=== PATIENT | male | born 1955 | race African-American/Black ===

== ENCOUNTER 2016-12-27 03:28 | Emergency (ER) | payer BC, OTHER ==
[~2016-12-27] VITALS: Ht 188 cm; Wt 108.9 kg
[~2016-12-27 03:28] MED LIST: FAMO40TA4 PO; OMEP40CA5 PO; SUCR1TAB29 PO
[2016-12-27 03:51] VITALS: BP 138/82
--- NOTE | 2016-12-27 04:17 | ED.ADGEN ---
Past Medical History Past Medical History: No Pertinent History Additional Past Medical Histor: ULCER Past Surgical History: No Surgical History Additional Past Surgical Histo: EGD Alcohol Use: None Drug Use: None Adult General Chief Complaint Chief Complaint: EYE PROBLEMS HPI HPI Patient is a 61 year old man, with no significant past medical history, who presents the emergency department with a complaint of swelling of the left upper eyelid. Patient states he began yesterday, states he woke up in the morning and noted there is mild itching of the eyelid, states he was rubbing it when he was at the gym, although he denies any discrete injuries, any initial irritation. He denies any eye pain, any vision changes, any headache, any ear pain, any upper respiratory or lower respiratory complaints, any fevers or chills, any foreign body sensation. He states he's been trying not rub the eye, he did apply a dose of erythromycin ointment that his had at home. He does not have an mri special procedures technologist or any eye issues. Noted to have a small amount of whitish drainage from the outer aspect of the eye lid. Review of Systems Review of Systems Constitutional: Denies fever or chills. [] Eyes: Denies change in visual acuity. Swelling of the left upper eyelid, small amount of white drainage from the lateral aspect. No eye pain. No pain with eye motion. HENT: Denies nasal congestion or sore throat. [] Respiratory: Denies cough or shortness of breath. [] Cardiovascular: Denies chest pain or edema. [] GI: Denies abdominal pain, nausea, vomiting, bloody stools or diarrhea. [] : Denies dysuria. [] Musculoskeletal: Denies back pain or joint pain. [] Integument: Denies rash. [] Neurologic: Denies headache, focal weakness or sensory changes. [] Endocrine: Denies polyuria or polydipsia. [] Lymphatic: Denies swollen glands. [] Psychiatric: Denies depression or anxiety. [] Allergies Allergies Allergies Coded Allergies Type Severity Reaction Last Updated Verified No Known Drug Allergies 04/05/14 No Physical Exam Physical Exam Constitutional: Well developed, well nourished, no acute distress, swelling of the left upper eyelid.. [] HENT: Normocephalic, atraumatic, bilateral external ears normal, oropharynx moist, no oral exudates, nose normal. [] Eyes: PERRLA, EOMI, conjunctiva normal, no discharge. Patient with swelling of the left upper eyelid, normal eye motion, painless, vision is intact, no involvement of the lower eyelid, no lid lag. Neck: Normal range of motion, no tenderness, supple, no stridor. [] Cardiovascular:Heart rate regular rhythm, no murmur, S1, S2, rubs or gallops. [] Lungs & Thorax: Bilateral breath sounds clear to auscultation, no wheezing, rhonchi, rales. [] Abdomen: Bowel sounds normal, soft, no tenderness, no masses, no pulsatile masses. [] Neurologic: Alert and oriented X 3, normal motor function, normal sensory function, no focal deficits noted. [] Psychologic: Affect normal, judgement normal, mood normal. [] Current Patient Data Vital Signs Vital Signs Date Time Temp Pulse Resp B/P (MAP) Pulse Ox O2 Delivery O2 Flow Rate FiO2 12/27/16 03:51 97.6 59 18 96 Room Air 97.6 EKG EKG Not indicated. [] Radiology/Procedures Radiology/Procedures Not indicated. [] Course & Med Decision Making Course & Med Decision Making Pertinent Labs and Imaging studies reviewed. (See chart for details) Patient's examination is consistent with blepharitis, no evidence of septal or preseptal cellulitis or eye involvement. I did discuss use of warm compresses, and keeping the eye clean, avoiding scratching at the eye and rubbing at the eye with patient. He voiced understanding and agreement with instructions. Discussed with the patient that if symptoms persist, or if pain with the eye develops, he should return to the emergency department for follow-up with ophthalmology, he was given contact information for Dr. Martin of ophthalmology. Patient discharged home in stable condition with plan as above. Dragon Disclaimer Dragon Disclaimer This electronic medical record was generated, in whole or in part, using a voice recognition dictation system. Departure Impression: Primary Impression: Blepharitis of eyelid of left eye Disposition: HOME, SELF-CARE Condition: IMPROVED OPAL CASTILLO DO December 27, 2016 04:17
== END 2016-12-27 04:15 | disposition home or self-care (01) ==
LOC: ER 03:28
DX: H01.004 Unspecified blepharitis left upper eyelid (principal)
CPT/HCPCS: 99281

== ENCOUNTER 2017-02-01 13:46 | Emergency (ER) | payer BC ==
[~2017-02-01] VITALS: Ht 188 cm; Wt 108.9 kg
[~2017-02-01 13:46] MED LIST changes: -SUCR1TAB29 PO; +SUCR1TAB35 PO
[2017-02-01 13:56] VITALS: BP 161/93
--- NOTE | 2017-02-01 14:10 | RAD ---
Indication: Mid chest pain. Time of exam 1405 hours. FINDINGS: The heart size is normal. The lungs are clear. No pleural effusion or pneumothorax is identified. The pulmonary vascularity is normal. IMPRESSION: No acute abnormality detected.
[2017-02-01 14:20] LABS: BASO % 1 % (0-3); EOS % 4 % (0-3); HEMATOCRIT 43.6 % (39.0-53.0); LYMPH # 1.9 x10^3/uL (1.0-4.8); LYMPH % 37 % (24-48); MEAN CORPUSCULAR HEMOGLOBIN 33 pg (25-35); MEAN CORPUSCULAR HGB CONC 35 g/dL (31-37); MEAN CORPUSCULAR VOLUME 96 fL (79-100); MONO % 6 % (0-9); NEUT % 52 % (31-73); PLATELET COUNT 256 x10^3/uL (140-400); RED BLOOD COUNT 4.55 x10^6/uL (4.30-5.70); RED CELL DISTRIBUTION WIDTH 12.6 % (11.5-14.5); WHITE BLOOD COUNT 5.2 x10^3/uL (4.0-11.0)
[2017-02-01 14:33] LABS: CALCIUM 9.9 mg/dL (8.5-10.1); CREATININE 1.1 mg/dL (0.7-1.3); GFR 82.6; POTASSIUM 3.6 mmol/L (3.5-5.1)
[2017-02-01 14:39] LABS: ALBUMIN 4.1 g/dL (3.4-5.0); ALBUMIN/GLOBULIN RATIO 1.1 (1.0-1.7); TOTAL BILIRUBIN 0.9 mg/dL (0.2-1.0); TOTAL PROTEIN 7.8 g/dL (6.4-8.2)
--- NOTE | 2017-02-01 15:34 | EKG ---
[facility] [address] [place] [address] Test Date: 2017-02-01 Test Time: 13:51:45 Pat Name: KJ HURD Department: Room: Gender: M Nut Grader: : 1955 Requested By: KAREN MYRICK Order Number: [id number] Reading MD: Sindy Nuñez Measurements Intervals Centuria Rate: 60 P: 52 NE: 194 QRS: 25 QRSD: 76 T: -2 QT: 400 QTc: 404 Interpretive Statements SINUS RHYTHM NON SPECIFIC T ABNORMALITY Electronically Signed On 02-01-2017 21:06:34 CDT by Sindy Nuñez
[2017-02-01] MEDS ORDERED: FAMOTIDINE 20 MG/2 ML VIAL IVP ONE (16:30)
[2017-02-01] MEDS ORDERED: LIDO:MAALOX:DONNATAL 1:1:1 15 ML SINGLE DOSE SWSW ONE (16:30)
--- NOTE | 2017-02-01 17:03 | ED.ADGEN ---
Past Medical History Past Medical History: No Pertinent History Additional Past Medical Histor: ULCER Past Surgical History: No Surgical History Additional Past Surgical Histo: EGD Alcohol Use: None Drug Use: None Adult General Chief Complaint Chief Complaint: CHEST PAIN HPI HPI Patient is a 61 year old -[place] male with history of peptic ulcer disease who presents with intermittent epigastric pain nonradiating pain for the past 3 days. He began after recent trip to [place] after patient ate spicy foods. Denies nausea, hematemesis, black tarry stools or hematochezia. He takes a daily aspirin, but denies alcohol use. Denies fever, back pain chest pain shortness of breath, dizziness or lightheadedness. No other acute symptoms or complaints. Review of Systems Review of Systems Review symptoms as per history of present illness. All other review of symptoms are negative. Current Medications Current Medications Current Medications Medications (Trade) Dose Ordered Sig/Preeti Start Time Stop Time Status Last Admin Dose Admin Famotidine (Pepcid) 20 mg 1X ONCE 02/01/17 16:30 02/01/17 16:32 DC Multi-Ingredient Mouthwash/Gargle (Gi Cocktail Single Dose) 20 ml 1X ONCE 02/01/17 16:30 02/01/17 16:32 DC Allergies Allergies Allergies Coded Allergies Type Severity Reaction Last Updated Verified No Known Drug Allergies 04/05/14 No Physical Exam Physical Exam Constitutional: Well developed, well nourished, no acute distress, non-toxic appearance. HENT: Normocephalic, atraumatic, bilateral external ears normal, oropharynx moist, no oral exudates, nose normal. Eyes: PERRLA, EOMI, conjunctiva normal. Neck: Normal range of motion, no tenderness. Cardiovascular:Heart rate regular rhythm, no murmur. Lungs & Thorax: Bilateral breath sounds clear to auscultation. Abdomen: Bowel sounds normal, soft, nontender. Skin: Warm, dry, no erythema, no rash. Back: No tenderness. Extremities: No tenderness. Neurologic: Alert and oriented X 3, normal motor function, normal sensory function, no focal deficits noted. Psychologic: Affect normal, judgement normal, mood normal. Current Patient Data Vital Signs Vital Signs Date Time Temp Pulse Resp B/P (MAP) Pulse Ox O2 Delivery O2 Flow Rate FiO2 02/01/17 13:56 98.0 59 20 161/93 (115) 96 Room Air 98.0 Lab Values Laboratory Tests Test 02/01/17 14:05 White Blood Count 5.2 x10^3/uL (4.0-11.0) Red Blood Count 4.55 x10^6/uL (4.30-5.70) Hemoglobin 15.0 g/dL (13.0-17.5) Hematocrit 43.6 % (39.0-53.0) Mean Corpuscular Volume 96 fL (79-100) Mean Corpuscular Hemoglobin 33 pg (25-35) Mean Corpuscular Hemoglobin Concent 35 g/dL (31-37) Red Cell Distribution Width 12.6 % (11.5-14.5) Platelet Count 256 x10^3/uL (140-400) Neutrophils (%) (Auto) 52 % (31-73) Lymphocytes (%) (Auto) 37 % (24-48) Monocytes (%) (Auto) 6 % (0-9) Eosinophils (%) (Auto) 4 % (0-3) H Basophils (%) (Auto) 1 % (0-3) Neutrophils # (Auto) 2.7 x10^3uL (1.8-7.7) Lymphocytes # (Auto) 1.9 x10^3/uL (1.0-4.8) Monocytes # (Auto) 0.3 x10^3/uL (0.0-1.1) Eosinophils # (Auto) 0.2 x10^3/uL (0.0-0.7) Basophils # (Auto) 0.0 x10^3/uL (0.0-0.2) Sodium Level 144 mmol/L (136-145) Potassium Level 3.6 mmol/L (3.5-5.1) Chloride Level 105 mmol/L (98-107) Carbon Dioxide Level 33 mmol/L (21-32) H Anion Gap 6 (6-14) Blood Urea Nitrogen 16 mg/dL (8-26) Creatinine 1.1 mg/dL (0.7-1.3) Estimated GFR (Cockcroft-Gault) 82.6 BUN/Creatinine Ratio 15 (6-20) Glucose Level 83 mg/dL (70-99) Calcium Level 9.9 mg/dL (8.5-10.1) Total Bilirubin 0.9 mg/dL (0.2-1.0) Aspartate Amino Transferase (AST) 43 U/L (15-37) H Alanine Aminotransferase (ALT) 51 U/L (16-63) Alkaline Phosphatase 106 U/L (46-116) Troponin I Quantitative < 0.017 ng/mL (0.000-0.055) Total Protein 7.8 g/dL (6.4-8.2) Albumin 4.1 g/dL (3.4-5.0) Albumin/Globulin Ratio 1.1 (1.0-1.7) Lipase 678 U/L (73-393) H Laboratory Tests 02/01/17 14:05 Laboratory Tests 02/01/17 14:05 EKG EKG [EKG: Normal sinus rhythm, rate 60, no acute ST-T wave changes, QTC 404] Radiology/Procedures Radiology/Procedures [] Course & Med Decision Making Course & Med Decision Making Pertinent Labs and Imaging studies reviewed. (See chart for details) [Given patient's history and presentation, his symptoms are likely due to peptic ulcer disease. Abdomen soft, nonsurgical. H&H is stable. Will resume Protonix and Carafate which patient has not been taking and follow up with patient's PCP. Return precautions reviewed.] Dragon Disclaimer Dragon Disclaimer This electronic medical record was generated, in whole or in part, using a voice recognition dictation system. KAREN MYRICK DO Feb 01, 2017 17:03
== END 2017-02-01 17:27 | disposition home or self-care (01) ==
LOC: ER 13:46
DX: R10.13 Epigastric pain (principal); Z87.11 Personal history of peptic ulcer disease; Z79.82 Long term (current) use of aspirin
CPT/HCPCS: 36415; 71010; 80053; 83690; 84484; 85027; 93005; 96374; 99285; S0028

== ENCOUNTER → 2018-11-10 | Outpatient (CLI) | payer OTHER ==
[~2018-11-10] MED LIST changes: +ALLO100T PO; +GADOBUTROL 10 MMOL/10 ML VIAL IV ONE; +OXYC1TAB19 PO
--- NOTE | 2018-11-10 10:24 | RAD ---
NECK ORBIT FACE W/WO CONTRAST History: Right-sided soft tissue mass at base of the skull for one year TECHNIQUE: Multiplanar, multi sequential pre and postcontrast MR imaging was performed of the neck. Comparison: None. Findings: No marker was placed at site of concern. There is an ovoid 2.6 m transverse by 1.9 cm AP by 2.2 cm cc focus of more defined fat in the right suboccipital region. This is not associated with significant enhancement. There is a small adjacent node more inferiorly along the right margin about 0.4 cm short axis dimension, also a couple of tiny nodes superiorly with the largest about 0.2 cm short axis dimension. No other enhancing mass is identified in this region. There is a more defined focus of fatty marrow signal change without bony expansion of the more central and right paracentral occipital calvarium about 1.6 cm AP by 1.3 cm cc by 1.4 cm transverse. Parotid and submandibular glands are symmetric in appearance. There is preservation of the parapharyngeal fat planes. There is patchy moderate to severe ethmoid air cell mucosal thickening, [id number] right greater than left maxillary sinus mucosal thickening. There is degenerative disc disease of the cervical spine greatest C5-6 and C6-7. There is spondylosis greatest C4-5 and C5-6. There is likely central canal stenosis C5-6 about 0.7 to 0.8 cm, to a lesser degree at C4-5. There is nonspecific mild prominence of the adenoids. There is nonspecific heterogeneity of the marrow of the clivus without expansion or enhancement, more likely related to hyperplastic red marrow. Impression: 1. 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 2. There is paranasal sinus mucosal thickening greatest of the ethmoid air cells. 3. There is cervical degenerative disc disease and spondylosis greatest C4-5 and C5-C6, likely spinal stenosis about 0.7 to 0.8 cm C5-6 and to lesser degree C4-5. 4. There is more defined focus of fatty marrow signal change of the central and right paracentral occipital calvarium, signal features also of lipoma. Electronically signed by: Maciej Benavides MD (11/10/2018 10:21 AM) [id number]
--- NOTE | 2018-11-15 17:45 | HP ---
ADMIT DATE: 11/10/2018 HISTORY OF PRESENT ILLNESS: The patient comes in because of an enlarging mass of his right occipital area and neck. He also has about a 2-3 cm mass to the right of the midline, mid right back. They are both enlarging in size. PAST MEDICAL HISTORY: Shows no surgery. He takes no medicine for anything and has no allergies. He had normal childhood diseases, but no other diseases to his knowledge and he takes no medication. FAMILY HISTORY: Noncontributory. REVIEW OF SYSTEMS: Negative except for these enlarging masses of the right occipital area and right back. They are not particularly painful, but are getting larger. It has been there for some years and he wishes to have them removed and find out what they are. SOCIAL HISTORY: Shows he does not use any drugs and does not smoke or drink alcohol. PHYSICAL EXAMINATION: GENERAL: Shows an alert male in no acute distress. HEAD, EARS, EYES, NOSE AND THROAT: Grossly normal. NECK: Supple. Trachea was in midline and he did have a mass at the occipital area right proximal neck. It appears to be 4-5 cm in diameter and is not particularly movable. The neck was otherwise supple. There was no evidence of inflammation. It appears to be at and above the hairline on the right. CHEST: Clear bilaterally to auscultation. HEART: Had no murmurs, heaves, friction rubs or thrills and the rate was estimated to be 72 beats per minute and it was regular. BACK: There is a mass of about 2 cm to the right of the midline by about 4-5 cm. It did not appear to be movable but does not appear to be deep. EXTREMITIES: The patient also has a mass of the left elbow lateral aspect and appears to be movable. The extremities were otherwise grossly normal. ABDOMEN: Not examined. GENITALIA: Not examined. IMPRESSION: 1. Mass of the right occipital neck area. 2. Mass of the right back. 3. Mass of the left elbow. EDILIA ESPINOSA MD DR: AVELINO/reina JOB#: [id number] / [id number]
--- NOTE | 2018-11-29 08:58 | PDOC4 ---
Operative Note Operative Note Surgeon.........................Warren Preop diagnosis..............Mass of the right posterior neck and mass of the back Postop diagnosis............same Anesthesia.....................general Procedure.......................Excision mass of the neck and mass of the back Blood loss.......................5 cc Drains.............................none Fluids.............................see anesthesia sheet Condition........................satisfactory EDILIA ESPINOSA MD Nov 29, 2018 08:58
--- NOTE | 2018-11-29 09:02 | PDOC ---
SURGICAL PROGRESS NOTE Subjective No change in dictated H&P EDILIA ESPINOSA MD Nov 29, 2018 09:01
== END | disposition home or self-care (01) ==
LOC: MRI 08:24
PROVIDERS: ATTEND Specialist
DX: D17.0 Benign lipomatous neoplasm of skin and subcutaneous tissue of head, face and neck (principal); M50.322 Other cervical disc degeneration at C5-C6 level; M47.812 Spondylosis without myelopathy or radiculopathy, cervical region
CPT/HCPCS: 70543; A9585

== ENCOUNTER 2018-11-29 07:14 | Day surgery (SDC) | payer OTHER ==
[~2018-11-29] VITALS: Ht 185.4 cm; Wt 108.9 kg
[~2018-11-29 07:14] MED LIST changes: -GADOBUTROL 10 MMOL/10 ML VIAL IV ONE; +HYDROmorphone 2 MG/ML VIAL IV PRN; +IV RINGERS,LACTATED 1000ML 1,000 ML IV SCH; +LIDOCAINE 1% PF 2 ML VIAL. ID PRN; +LIDOCAINE 1%/EPI 1:100,000 20 ML VIAL. ONE; +MORPHINE SULFATE 2 MG/ML VIAL. IV PRN; +ONDANSETRON PF 4 MG/2 ML VIAL. IV PRN; -OXYC1TAB19 PO; +PROCHLORPERAZINE 10 MG/2 ML VIAL. IV PRN; +fentaNYL PF VIAL 100 MCG/2 ML VIAL IV PRN
[2018-11-29] MEDS ORDERED: DEXAMETHASONE SOD PHOS 20 MG/5 ML VIAL. ONE (08:34)
[2018-11-29] MEDS ORDERED: ONDANSETRON PF 4 MG/2 ML VIAL. ONE (08:34)
[2018-11-29] MEDS ORDERED: ROCURONIUM 50 MG/5 ML VIAL. ONE (08:34)
[2018-11-29] MEDS ORDERED: LIDOCAINE 2% PF 5 ML VIAL. ONE (08:34)
[2018-11-29] MEDS ORDERED: PROPOFOL 20 ML IV ONE (08:34)
[2018-11-29 09:18] LABS: BASO % 1 % (0-3); EOS # 0.2 x10^3/uL (0.0-0.7); EOS % 6 % (0-3); HEMATOCRIT 44.9 % (39.0-53.0); HEMOGLOBIN 15.1 g/dL (13.0-17.5); LYMPH # 1.5 x10^3/uL (1.0-4.8); LYMPH % 44 % (24-48); MEAN CORPUSCULAR HEMOGLOBIN 33 pg (25-35); MEAN CORPUSCULAR HGB CONC 34 g/dL (31-37); MEAN CORPUSCULAR VOLUME 96 fL (79-100); MONO # 0.3 x10^3/uL (0.0-1.1); MONO % 8 % (0-9); NEUT # 1.4 x10^3uL (1.8-7.7); NEUT % 41 % (31-73); PLATELET COUNT 269 x10^3/uL (140-400); RED BLOOD COUNT 4.66 x10^6/uL (4.30-5.70); RED CELL DISTRIBUTION WIDTH 12.4 % (11.5-14.5); WHITE BLOOD COUNT 3.4 x10^3/uL (4.0-11.0)
[2018-11-29 09:26] LABS: CALCIUM 9.4 mg/dL (8.5-10.1); GFR 91.6; POTASSIUM 3.9 mmol/L (3.5-5.1)
[2018-11-29 09:32] LABS: ALBUMIN/GLOBULIN RATIO 1.1 (1.0-1.7); TOTAL BILIRUBIN 0.8 mg/dL (0.2-1.0); TOTAL PROTEIN 7.8 g/dL (6.4-8.2)
[2018-11-29] MEDS ORDERED: fentaNYL PF VIAL 100 MCG/2 ML VIAL ONE (09:40)
[2018-11-29] MEDS ORDERED: PHENYLEPHRINE 10 MG/ML VIAL. ONE (09:54)
[2018-11-29] MEDS ORDERED: NEOSTIGMINE METHYLSULFATE 5 MG/5 ML SYRINGE. ONE (10:31)
[2018-11-29] MEDS ORDERED: GLYCOPYRROLATE 1 MG/5 ML VIAL. ONE (10:31)
[2018-11-29] MEDS ORDERED: SEVOFLURANE 61 TO 120 MINUTES. IH ONE (10:35)
[2018-11-29] MEDS ORDERED: SEVOFLURANE > 120 MINUTES. IH ONE (11:18)
[2018-11-29] MEDS ORDERED: KETOROLAC 30 MG/ML INJ FOR OR. INJ ONE (11:40)
--- NOTE | 2018-11-29 11:54 | PDOC ---
SURGICAL PROGRESS NOTE Subjective No change in dictated H&P Vital Signs Vital Signs Date Time Temp Pulse Resp B/P (MAP) Pulse Ox O2 Delivery O2 Flow Rate FiO2 11/29/18 07:47 97.5 54 16 135/85 97 Room Air 97.5 Labs Laboratory Tests Test 11/29/18 08:00 White Blood Count 3.4 x10^3/uL (4.0-11.0) Red Blood Count 4.66 x10^6/uL (4.30-5.70) Hemoglobin 15.1 g/dL (13.0-17.5) Hematocrit 44.9 % (39.0-53.0) Mean Corpuscular Volume 96 fL (79-100) Mean Corpuscular Hemoglobin 33 pg (25-35) Mean Corpuscular Hemoglobin Concent 34 g/dL (31-37) Red Cell Distribution Width 12.4 % (11.5-14.5) Platelet Count 269 x10^3/uL (140-400) Neutrophils (%) (Auto) 41 % (31-73) Lymphocytes (%) (Auto) 44 % (24-48) Monocytes (%) (Auto) 8 % (0-9) Eosinophils (%) (Auto) 6 % (0-3) Basophils (%) (Auto) 1 % (0-3) Neutrophils # (Auto) 1.4 x10^3uL (1.8-7.7) Lymphocytes # (Auto) 1.5 x10^3/uL (1.0-4.8) Monocytes # (Auto) 0.3 x10^3/uL (0.0-1.1) Eosinophils # (Auto) 0.2 x10^3/uL (0.0-0.7) Basophils # (Auto) 0.0 x10^3/uL (0.0-0.2) Prothrombin Time 14.0 SEC (11.7-14.0) Prothromb Time International Ratio 1.1 (0.8-1.1) Sodium Level 142 mmol/L (136-145) Potassium Level 3.9 mmol/L (3.5-5.1) Chloride Level 105 mmol/L (98-107) Carbon Dioxide Level 31 mmol/L (21-32) Anion Gap 6 (6-14) Blood Urea Nitrogen 17 mg/dL (8-26) Creatinine 1.0 mg/dL (0.7-1.3) Estimated GFR (Cockcroft-Gault) 91.6 BUN/Creatinine Ratio 17 (6-20) Glucose Level 83 mg/dL (70-99) Calcium Level 9.4 mg/dL (8.5-10.1) Total Bilirubin 0.8 mg/dL (0.2-1.0) Aspartate Amino Transf (AST/SGOT) 28 U/L (15-37) Alanine Aminotransferase (ALT/SGPT) 40 U/L (16-63) Alkaline Phosphatase 109 U/L (46-116) Total Protein 7.8 g/dL (6.4-8.2) Albumin 4.0 g/dL (3.4-5.0) Albumin/Globulin Ratio 1.1 (1.0-1.7) Laboratory Tests Test 11/29/18 08:00 White Blood Count 3.4 x10^3/uL (4.0-11.0) Red Blood Count 4.66 x10^6/uL (4.30-5.70) Hemoglobin 15.1 g/dL (13.0-17.5) Hematocrit 44.9 % (39.0-53.0) Mean Corpuscular Volume 96 fL (79-100) Mean Corpuscular Hemoglobin 33 pg (25-35) Mean Corpuscular Hemoglobin Concent 34 g/dL (31-37) Red Cell Distribution Width 12.4 % (11.5-14.5) Platelet Count 269 x10^3/uL (140-400) Neutrophils (%) (Auto) 41 % (31-73) Lymphocytes (%) (Auto) 44 % (24-48) Monocytes (%) (Auto) 8 % (0-9) Eosinophils (%) (Auto) 6 % (0-3) Basophils (%) (Auto) 1 % (0-3) Neutrophils # (Auto) 1.4 x10^3uL (1.8-7.7) Lymphocytes # (Auto) 1.5 x10^3/uL (1.0-4.8) Monocytes # (Auto) 0.3 x10^3/uL (0.0-1.1) Eosinophils # (Auto) 0.2 x10^3/uL (0.0-0.7) Basophils # (Auto) 0.0 x10^3/uL (0.0-0.2) Prothrombin Time 14.0 SEC (11.7-14.0) Prothromb Time International Ratio 1.1 (0.8-1.1) Sodium Level 142 mmol/L (136-145) Potassium Level 3.9 mmol/L (3.5-5.1) Chloride Level 105 mmol/L (98-107) Carbon Dioxide Level 31 mmol/L (21-32) Anion Gap 6 (6-14) Blood Urea Nitrogen 17 mg/dL (8-26) Creatinine 1.0 mg/dL (0.7-1.3) Estimated GFR (Cockcroft-Gault) 91.6 BUN/Creatinine Ratio 17 (6-20) Glucose Level 83 mg/dL (70-99) Calcium Level 9.4 mg/dL (8.5-10.1) Total Bilirubin 0.8 mg/dL (0.2-1.0) Aspartate Amino Transf (AST/SGOT) 28 U/L (15-37) Alanine Aminotransferase (ALT/SGPT) 40 U/L (16-63) Alkaline Phosphatase 109 U/L (46-116) Total Protein 7.8 g/dL (6.4-8.2) Albumin 4.0 g/dL (3.4-5.0) Albumin/Globulin Ratio 1.1 (1.0-1.7) EDILIA ESPINOSA MD Nov 29, 2018 11:54
--- NOTE | 2018-11-29 11:57 | PDOC ---
SURGICAL PROGRESS NOTE Subjective OP NOte: surgeon...................................Espinosa Pe op diag...............................tumor right neck and right upper back Post op diag............................same Anesthesia..............................general Procedure...............................excision mass deep of right upper neck Excisio mckay of right upper back Bloo0d loss.............................60cc Fluids.....................................see anesthesia sheet Drains....................................none Condition................................satisfactory Vital Signs Vital Signs Date Time Temp Pulse Resp B/P (MAP) Pulse Ox O2 Delivery O2 Flow Rate FiO2 11/29/18 07:47 97.5 54 16 135/85 97 Room Air 97.5 Labs Laboratory Tests Test 11/29/18 08:00 White Blood Count 3.4 x10^3/uL (4.0-11.0) Red Blood Count 4.66 x10^6/uL (4.30-5.70) Hemoglobin 15.1 g/dL (13.0-17.5) Hematocrit 44.9 % (39.0-53.0) Mean Corpuscular Volume 96 fL (79-100) Mean Corpuscular Hemoglobin 33 pg (25-35) Mean Corpuscular Hemoglobin Concent 34 g/dL (31-37) Red Cell Distribution Width 12.4 % (11.5-14.5) Platelet Count 269 x10^3/uL (140-400) Neutrophils (%) (Auto) 41 % (31-73) Lymphocytes (%) (Auto) 44 % (24-48) Monocytes (%) (Auto) 8 % (0-9) Eosinophils (%) (Auto) 6 % (0-3) Basophils (%) (Auto) 1 % (0-3) Neutrophils # (Auto) 1.4 x10^3uL (1.8-7.7) Lymphocytes # (Auto) 1.5 x10^3/uL (1.0-4.8) Monocytes # (Auto) 0.3 x10^3/uL (0.0-1.1) Eosinophils # (Auto) 0.2 x10^3/uL (0.0-0.7) Basophils # (Auto) 0.0 x10^3/uL (0.0-0.2) Prothrombin Time 14.0 SEC (11.7-14.0) Prothromb Time International Ratio 1.1 (0.8-1.1) Sodium Level 142 mmol/L (136-145) Potassium Level 3.9 mmol/L (3.5-5.1) Chloride Level 105 mmol/L (98-107) Carbon Dioxide Level 31 mmol/L (21-32) Anion Gap 6 (6-14) Blood Urea Nitrogen 17 mg/dL (8-26) Creatinine 1.0 mg/dL (0.7-1.3) Estimated GFR (Cockcroft-Gault) 91.6 BUN/Creatinine Ratio 17 (6-20) Glucose Level 83 mg/dL (70-99) Calcium Level 9.4 mg/dL (8.5-10.1) Total Bilirubin 0.8 mg/dL (0.2-1.0) Aspartate Amino Transf (AST/SGOT) 28 U/L (15-37) Alanine Aminotransferase (ALT/SGPT) 40 U/L (16-63) Alkaline Phosphatase 109 U/L (46-116) Total Protein 7.8 g/dL (6.4-8.2) Albumin 4.0 g/dL (3.4-5.0) Albumin/Globulin Ratio 1.1 (1.0-1.7) Laboratory Tests Test 11/29/18 08:00 White Blood Count 3.4 x10^3/uL (4.0-11.0) Red Blood Count 4.66 x10^6/uL (4.30-5.70) Hemoglobin 15.1 g/dL (13.0-17.5) Hematocrit 44.9 % (39.0-53.0) Mean Corpuscular Volume 96 fL (79-100) Mean Corpuscular Hemoglobin 33 pg (25-35) Mean Corpuscular Hemoglobin Concent 34 g/dL (31-37) Red Cell Distribution Width 12.4 % (11.5-14.5) Platelet Count 269 x10^3/uL (140-400) Neutrophils (%) (Auto) 41 % (31-73) Lymphocytes (%) (Auto) 44 % (24-48) Monocytes (%) (Auto) 8 % (0-9) Eosinophils (%) (Auto) 6 % (0-3) Basophils (%) (Auto) 1 % (0-3) Neutrophils # (Auto) 1.4 x10^3uL (1.8-7.7) Lymphocytes # (Auto) 1.5 x10^3/uL (1.0-4.8) Monocytes # (Auto) 0.3 x10^3/uL (0.0-1.1) Eosinophils # (Auto) 0.2 x10^3/uL (0.0-0.7) Basophils # (Auto) 0.0 x10^3/uL (0.0-0.2) Prothrombin Time 14.0 SEC (11.7-14.0) Prothromb Time International Ratio 1.1 (0.8-1.1) Sodium Level 142 mmol/L (136-145) Potassium Level 3.9 mmol/L (3.5-5.1) Chloride Level 105 mmol/L (98-107) Carbon Dioxide Level 31 mmol/L (21-32) Anion Gap 6 (6-14) Blood Urea Nitrogen 17 mg/dL (8-26) Creatinine 1.0 mg/dL (0.7-1.3) Estimated GFR (Cockcroft-Gault) 91.6 BUN/Creatinine Ratio 17 (6-20) Glucose Level 83 mg/dL (70-99) Calcium Level 9.4 mg/dL (8.5-10.1) Total Bilirubin 0.8 mg/dL (0.2-1.0) Aspartate Amino Transf (AST/SGOT) 28 U/L (15-37) Alanine Aminotransferase (ALT/SGPT) 40 U/L (16-63) Alkaline Phosphatase 109 U/L (46-116) Total Protein 7.8 g/dL (6.4-8.2) Albumin 4.0 g/dL (3.4-5.0) Albumin/Globulin Ratio 1.1 (1.0-1.7) EDILIA ESPINOSA MD Nov 29, 2018 11:57
[2018-11-29] MEDS ORDERED: OXYC1TAB19 PO (12:35)
[2018-11-29] MEDS ORDERED: oxyCODONE/APAP 7.5/325 1 TAB TABLET PO ONE (12:45)
[2018-11-29 13:10] VITALS: BP 130/68
--- NOTE | 2018-11-30 02:05 | OP ---
DATE OF SURGERY: SURGEON: Jake Espinosa M.D. PREOPERATIVE DIAGNOSIS: Tumor of right upper posterior neck and tumor of back. POSTOPERATIVE DIAGNOSIS: Tumor of right upper posterior neck and tumor of back. The tumor of the neck was deep to the fascia. ANESTHESIA: General. PROCEDURE: Excision of deep tumor proximal posterior right neck and excision of large tumor, right upper back. TECHNIQUE: They were done separately and the neck was done first. It was properly prepped and draped in routine fashion. The lesion being the highest portion of the neck just to the right of the midline. We made a transverse incision to make certain that it was be cosmetically acceptable and it also had to be enlarged as we got deeper into the tumor. We used a 15-blade to make an incision over the mass and carried this down to the subcutaneous. We went into the subcutaneous and then deep to the fascia covering the muscle, we made an incision in the fascia and we saw the mass. It was really fairly firm about 3-4 cm in size and was seemed to be well circumscribed. It did not have finger-like projections that she would see from typical lipoma and therefore, I do not know what this was. Grossly, we excised it totally. There was a difficult dissection as we slowly went around the mass, getting up under the mass was hard and the mass was hard.. Small brisk bleeders were cauterized. This was done, we used Metzenbaum scissors and it and cut and slowly excised the mass grossly totally from the surrounding tissues. It appeared to be pretty well encapsulated and was removed totally with difficulty as it was deep. The resultant defect was inspected. Cautery was used to control all the bleeders and we used a 3-0 Vicryl to approximate the fascia and then 4-0 Vicryl to approximate the subcutaneous in interrupted fashion. We then used 4-0 nylon to close the skin in interrupted fashion. A sterile dressing was applied and the procedure was terminated. The blood loss during this procedure was probably 35-40 mL. The fluids given can be obtained from the anesthesia sheet and no drains were used and the condition of the patient was satisfactory as we proceeded to go on to remove the next mass. Next, the area of the back was properly prepped and draped in a routine fashion and a longitudinal incision was made over this very large mass in a fusiform fashion. We did this with a 15 blade and carried it down through the skin. The skin was picked on the back, we went through this. Superiorly, we developed a plane into the subcutaneous and then I encountered the mass and I used Metzenbaum scissors to go down to the mass. We did not enter the mass but excised it from the surrounding structures. The mass was about 4-5 cm grossly seen in the back and this was totally excised from the surrounding tissues. The resultant defect was inspected and 3-0 Vicryl was used to approximate the deeper structures and then 4-0 Vicryl interrupted sutures was used to close the skin. The procedure was now terminated as sterile dressing was applied. Blood loss was about 10-15 mL. Fluids given can be obtained from the anesthesia sheet. No drains were used and the condition of the patient was satisfactory as he has returned to the Recovery Room. Sterile Tegaderm dressings were used for the back mass incision. JAKE ESPINOSA MD DR: AVELINO/reina JOB#: [id number] / [id number] CARI
--- NOTE | 2018-11-30 09:19 | HP ---
ADMIT DATE: 11/10/2018 HISTORY OF PRESENT ILLNESS: The patient comes in because of an enlarging mass of his right occipital area and neck. He also has about a 2-3 cm mass to the right of the midline, mid right back. They are both enlarging in size. PAST MEDICAL HISTORY: Shows no surgery. He takes no medicine for anything and has no allergies. He had normal childhood diseases, but no other diseases to his knowledge and he takes no medication. FAMILY HISTORY: Noncontributory. REVIEW OF SYSTEMS: Negative except for these enlarging masses of the right occipital area and right back. They are not particularly painful, but are getting larger. It has been there for some years and he wishes to have them removed and find out what they are. SOCIAL HISTORY: Shows he does not use any drugs and does not smoke or drink alcohol. PHYSICAL EXAMINATION: GENERAL: Shows an alert male in no acute distress. HEAD, EARS, EYES, NOSE AND THROAT: Grossly normal. NECK: Supple. Trachea was in midline and he did have a mass at the occipital area right proximal neck. It appears to be 4-5 cm in diameter and is not particularly movable. The neck was otherwise supple. There was no evidence of inflammation. It appears to be at and above the hairline on the right. CHEST: Clear bilaterally to auscultation. HEART: Had no murmurs, heaves, friction rubs or thrills and the rate was estimated to be 72 beats per minute and it was regular. BACK: There is a mass of about 2 cm to the right of the midline by about 4-5 cm. It did not appear to be movable but does not appear to be deep. EXTREMITIES: The patient also has a mass of the left elbow lateral aspect and appears to be movable. The extremities were otherwise grossly normal. ABDOMEN: Not examined. GENITALIA: Not examined. IMPRESSION: 1. Mass of the right occipital/neck area. 2. Mass of the right back. 3. Mass of the left elbow. EDILIA ESPINOSA MD DR: AVELINO/reina JOB#: [id number] / [id number] CARI
--- NOTE | 2018-12-01 14:06 | PATHOLOGY ---
[facility] Accession Number: [id number] . 01 Material submitted: . PART A: scalp - POSTERIOR SCALP TUMOR. Modifiers: posterior PART B: back - BACK MASS . 01 Clinical history: . Scalp/back mass . 02 Diagnosis: A. Fibroadipose tissue, posterior scalp tumor excision: - Fibrolipoma. . B. Skin and subcutaneous tissue, back mass excision: - Follicular cyst, infundibular type. (JPM:chao; 12/01/2018) QMS/12/01/2018 . 02 Comment: There is no evidence of malignancy. . 02 Electronically signed: . Osvaldo Gurrola MD, Pathologist NPI- [id number] . 01 Gross description: . A. The specimen is received in formalin, labeled "Houstonia Eatman, posterior scalp tumor". Received is a segment of encapsulated pink-banerjee, moderately firm tissue measuring 2.9 x 2.6 x 2.0 cm in greatest dimensions. The surgical margin is inked. Sectioning reveals yellow-banerjee, glistening cut surfaces throughout. The specimen is submitted representatively in cassettes A1 through A3. . B. The specimen is received in formalin, labeled "Kvng Eatman, back mass". Received is an ellipse of light banerjee, grossly unremarkable skin with attached underlying soft tissue measuring 7.1 x 3.0 x 2.8 cm in greatest dimensions with a suture placed at one tip, which will arbitrarily be designated as the 12:00 margin. The surgical margins are inked as follows: 12 to 3:00-yellow, 3 to 6:00-blue, and 6 to 12:00-black. Sectioning reveals a unilocular cystic structure measuring 2.7 cm filled with pale banerjee to wheat-banerjee amorphous material. The specimen is submitted representatively in cassette B1. (CAA; 11/30/2018) QAC/QAC . 02 Pathologist provided ICD-10: D17.79, L72.9 . 02 CPT . 949345, 590469 Specimen Comment: A courtesy copy of this report has been sent to Specimen Comment: [phone], . Specimen Comment: Report sent to / DR PERRY Performed at: 01 [facility] [address] [facility] [address], [place] [id number] MD Demarcus Mchugh MD Phone: [phone] Performed at: 02 [facility] [address] [place], [place] [id number] MD Osvaldo Gurrola MD Phone: [phone]
== END 2018-11-29 13:18 | disposition home or self-care (01) ==
LOC: SURG 07:14
PROVIDERS: ATTEND Specialist
DX: D17.0 Benign lipomatous neoplasm of skin and subcutaneous tissue of head, face and neck (principal); L72.8 Other follicular cysts of the skin and subcutaneous tissue; Z79.01 Long term (current) use of anticoagulants; Z79.899 Other long term (current) drug therapy; M10.9 Gout, unspecified; Z98.890 Other specified postprocedural states; Z87.442 Personal history of urinary calculi; F14.90 Cocaine use, unspecified, uncomplicated; Z87.891 Personal history of nicotine dependence
CPT/HCPCS: 11406; 12032; 21014; 36415; 80053; 85025; 85610; 88304; J0690; J1100; J1885; J2001; J2405; J2704; J2710; J3010; J3490

== ENCOUNTER 2021-01-05 10:03 | Emergency (ER) | payer OTHER ==
[~2021-01-05] VITALS: Ht 185.4 cm; Wt 115.9 kg
[~2021-01-05 10:03] MED LIST changes: -HYDROmorphone 2 MG/ML VIAL IV PRN; -IV RINGERS,LACTATED 1000ML 1,000 ML IV SCH; -LIDOCAINE 1% PF 2 ML VIAL. ID PRN; -LIDOCAINE 1%/EPI 1:100,000 20 ML VIAL. ONE; -MORPHINE SULFATE 2 MG/ML VIAL. IV PRN; +OMEP40CA45 PO; -OMEP40CA5 PO; -ONDANSETRON PF 4 MG/2 ML VIAL. IV PRN; +OXYC1TAB19 PO; -PROCHLORPERAZINE 10 MG/2 ML VIAL. IV PRN; -fentaNYL PF VIAL 100 MCG/2 ML VIAL IV PRN
--- NOTE | 2021-01-05 10:52 | PHYS DOC ---
Past Medical History Past Medical History: No Pertinent History Additional Past Medical Histor: ULCER Past Surgical History: No Surgical History Additional Past Surgical Histo: EGD Smoking Status: Never Smoker Alcohol Use: None Drug Use: None General Adult EDM: Chief Complaint: ABDOMINAL PAIN HPI: HPI: 65-year-old male past medical history of gout presents the ED with complaints of left lower quadrant and left low back pain, nonradiating described as sharp for the past 3 days with associated black stools, reports he noticed dark stools while he was at the gym. History of abdominal ulcers 10 years ago, was admitted to the hospital analysis last encounter being seen by a GI physician. Is not on any anticoagulants. Only takes allopurinol for gout. Denies any alcohol use or binge drinking states, "I don't do that, I go to [facility]." No PSH. Has not eaten anything today due to the pain but reports no nausea or vomiting, is tolerating food and drink. Review of Systems: Review of Systems: Constitutional: Denies fever or chills. [] Eyes: Denies change in visual acuity. [] HENT: Denies nasal congestion or sore throat. [] Respiratory: Denies cough or shortness of breath. [] Cardiovascular: Denies chest pain or edema. [] GI: Denies nausea or vomiting or hematochezia : Denies dysuria or hematuria Musculoskeletal: Denies joint pain or deformity Integument: Denies rash or diaphoresis Neurologic: Denies headache, focal weakness or sensory changes. [] Endocrine: Denies polyuria or polydipsia. [] Lymphatic: Denies swollen glands. [] Psychiatric: Denies depression or anxiety. [] Heart Score: C/O Chest Pain: No Risk Factors: Risk Factors: DM, Current or recent (<one month) smoker, HTN, HLP, family history of CAD, obesity. Risk Scores: Score 0 - 3: 2.5% MACE over next 6 weeks - Discharge Home Score 4 - 6: 20.3% MACE over next 6 weeks - Admit for Clinical Observation Score 7 - 10: 72.7% MACE over next 6 weeks - Early Invasive Strategies Allergies: Allergies: Allergies Coded Allergies Type Severity Reaction Last Updated Verified No Known Drug Allergies 11/29/18 No Physical Exam: PE: Constitutional: Well developed, well nourished, no acute distress, non-toxic appearance. HENT: Normocephalic, atraumatic, Eyes: EOMI, conjunctiva normal, no discharge. Neck: Normal range of motion, supple, Cardiovascular: S1/2 present, regular rhythm Lungs & Thorax: Speaking in full sentences, bilateral equal chest rise, no tachypnea or increased work of breathing Abdomen: soft, mild left lower quadrant tenderness with no Rovsing sign, no McBurney's point tenderness, no Taveras sign, no rigidity or guarding Skin: Warm, dry, no erythema, no rash. [] Back: Reports nonreproducible left lumbar back pain, no midline tenderness, no CVA tenderness. [] Extremities: No tenderness, no cyanosis, no lower extremity edema Neurologic: Alert and oriented X 3, normal motor function, normal sensory function, no focal deficits noted. [] Psychologic: Affect normal, judgement normal, mood normal. [] : Small nonthrombosed external hemorrhoids at 6/7 o'clock position with no fissure, no peripheral blood, scant stool in rectal vault with no melena EKG: EKG: [] Radiology/Procedures: Radiology/Procedures: [facility] [address] [place] [address] IMAGING REPORT Signed PATIENT: KJ HURD ACCOUNT: [id number] : 1955 LOCATION: ER AGE: 65 SEX: M EXAM STATUS: REG ER ORD. PHYSICIAN: IGSELLE HOOD DO REASON: Lower abdomen pain, blood in stool x 3 days PROCEDURE: CT ABD PELV W/ IV CONTRST ONLY Study: CT abdomen/pelvis with intravenous contrast Indication: Lower abdominal pain. Bloody stools. Comparison: 03/22/2015 Technique: Helical CT imaging performed of the abdomen and pelvis after the intravenous administration of 75 cc Omnipaque 300 contrast. Sagittal and coronal reformats were obtained. One or more of the following individualized dose reduction techniques were utilized for this examination: 1. Automated exposure control 2. Adjustment of the mA and/or kV according to patient size 3. Use of iterative reconstruction technique. Findings: Chest: Mild bibasilar volume loss. Liver: Hepatic steatosis. Gallbladder/Biliary Tree: No CT manifestations of acute cholecystitis. Nondilated biliary tree. Pancreas: Unremarkable. Spleen: Mildly enlarged at 14 cm transverse. Adrenal Glands: No adrenal gland mass. Kidneys/Ureters/Bladder: Small renal cystic foci on the right not fully characterized. Tiny focus of low attenuation at the lower pole of the left kidney. No nephrolithiasis or hydronephrosis. Within normal limits urinary bladder. Reproductive Organs: Enlarged prostate with median lobe hypertrophy. The prostate measures 5.5 cm transverse. Colon: Active diverticulitis at the distal aspect of the descending segment with surrounding inflammation and trace free fluid. No evidence for an uncontained perforation. No abscess. Appendix: Normal. Small Bowel: Nonobstructed. Stomach: Unremarkable. Vasculature: Scattered calcific atherosclerosis. Nonaneurysmal aorta. Lymph Nodes: Within normal limits. Peritoneum and Body Wall: Trace free pelvic fluid. Inflammatory changes associated with diverticulitis as described. No pneumoperitoneum. Small fat- containing umbilical hernia. Scattered metallic densities within the soft tissues around the right more so than left hips. Bones: Multifocal degenerative changes. No acute or aggressive osseous process. Miscellaneous: None. Impression: 1. Acute diverticulitis involving the distal aspect of the descending colon without an uncontained perforation or abscess. Consider follow-up to confirm resolution and exclude an underlying mass. 2. Hepatic steatosis. Mild splenomegaly. 3. Additional chronic observations detailed in the body the report. Electronically signed by: NII ROJAS MD (01/05/2021 11:54 AM) [facility] DICTATED and SIGNED BY: NII ROJAS MD DATE: 01/05/21 [id number] 0 Course & Med Decision Making: Course & Med Decision Making Pertinent Labs and Imaging studies reviewed. (See chart for details) Concern for acute diverticulitis with elevated lipase and liver function test. Patient still the gallbladder but has no right upper quadrant pain or signs of cholecystitis. Patient states he is tolerating oral intake with no nausea or vomiting. Was informed of CT findings of acute diverticulitis and elevated lipase but normal pancreas on CT. Occult stool negative for blood which is consistent with physical exam. Patient is hemodynamically stable with no tachycardia. Is very well-appearing and in no acute distress-easily moves in and out of bed without any significant abdominal or back pain. Will prescribe zofran odt but understands strict ED return precautions were given for worsening pain, nausea, vomiting, fever, bloody stools. Encouraged urgent outpatient follow-up with PMD in 24 to 48 hours and GI for outpatient management of diverticulitis. Life-threatening processes were considered but are low suspicion at this time, given history, physical exam and ED workup. Pt was educated on all prescription medications and adverse effects. All patient's questions were answered and pt was stable at time of discharge. Life/limb-threatening differential includes but is not limited to, aortic dissection, aortic aneurysm, acute coronary syndrome, surgical abdomen (appendicitis, cholecystitis, ischemic bowel, strangulated hernia, etc), bowel obstruction or volvulus, bladder outlet obstruction, gastrointestinal bleeding, inflammatory bowel disease, peptic ulcer disease, ACS/CAD, sepsis, diverticular disease, ureterolithiasis, nephrolithiasis, testicular torsion, or genitourinary infection. I spoken with the patient and her caregivers. I explained the patient's condition, diagnoses and treatment plan based on the information available to me at this time. I have answered the patient and her caregiver's questions and addressed any concerns. The patient and her caregivers have a good understanding of patient's diagnosis, condition and treatment plan as can be expected at this point. Vital signs have been stable. Patient's condition is stable and appropriate for discharge from the emergency department. Patient will pursue further outpatient evaluation with primary care physician or other designated or consulting physician as outlined in the discharge instructions. The patient and/or caregivers are agreeable to this plan of care and follow-up instructions have been explained in detail. The patient and/or caregivers have received these instructions in written form and have expressed an understanding of the discharge instructions. The patient and/or caregivers are aware that any significant change of condition or worsening of symptoms should prompt immediate return to this or the closest emergency department or call to 911. Bentley Disclaimer: Bentley Disclaimer: This electronic medical record was generated, in whole or in part, using a voice recognition dictation system. Departure Departure Impression: Primary Impression: Acute diverticulitis Additional Impressions: Elevated lipase Elevated liver function tests LLQ abdominal pain Acute left-sided low back pain Disposition: HOME / SELF CARE / HOMELESS Condition: STABLE Referrals: FRANKLIN PERRY (PCP) Follow-up with Dr. House in 24 to 48 hours Patient Instructions: Acute Pancreatitis, Diverticulitis Additional Instructions: FOLLOW UP WITH GASTROENTEROLOGY: For outpatient management of diverticulitis [facility] [address] [place] [address] EMERGENCY DEPARTMENT GENERAL DISCHARGE INSTRUCTIONS Thank you for coming to [facility] (ED) today and trusting us with you care. We trust that you had a positive experience in our Emergency Department. If you wish to speak to the department management, you may call the Director at [phone]. YOUR FOLLOW UP INSTRUCTIONS ARE FOLLOWS: 1. Do you have a private Doctor? If you do not have a private doctor, please ask for a resource list of physicians or clinics that may be able to assist you with follow up care. 2. The Emergency Physicain has interpreted your x-rays. The X-Ray specialist will also review them. If there is a change in the findings, you will be notified in 48 hours when at all possible. 3. A lab test or culture has been done, your results will be reviewed and you will be notified if you need a change in treatment. ADDITIONAL INSTRUCTIONS AND INFORMATION: 1. Your care today has been supervised by a physician who is specially trained in emergency care. Many problems require more than one evaluation for a complete diagnosis and treatment. We recommend that you schedule your follow up appointment as recommended to ensure complete treatment of you illness or injury. If you are unable to obtain follow up care and continue to have a problem, or if your condition worsens, we recommend that you return to the ED. 2. We are not able to safely determine your condition over the phone nor are we able to give sound medical advice over the phone. For these safety reasons, if you call for medical advice we will ask you to come to the ED for further evaluation. 3. If you have any questions regarding these discharge instructions please call the ED at [phone]. SAFETY INFORMATION: In the interest of safety, wellness, and injury prevention; we encourage you to wear your sealbelt, if you smoke; quite smoking, and we encourage family to use a protective helmet for bicycling and other sporting events that present an increased risk for head injury. IF YOUR SYMPTOMS WORSEN OR NEW SYMPTOMS DEVELOP, OR YOU HAVE CONCERNS ABOUT YOUR CONDITION; OR IF YOUR CONDITION WORSENS WHILE YOU ARE WAITING FOR YOUR FOLLOW UP APPOINTMENT; EITHER CONTACT YOUR PRIMARY CARE DOCTOR, THE PHYSICIAN WHOSE NAME AND NUMBER YOU WERE GIVEN, OR RETURN TO THE ED IMMEDIATELY. Scripts Ondansetron (ONDANSETRON ODT) 4 Mg Tab.rapdis 1 TAB PO PRN Q6-8HRS, #20 TAB Prov: GISELLE HOOD DO 01/05/21 Amoxicillin/Potassium Clav (AUGMENTIN 875-125 TABLET) 1 Each Tablet 1 TAB PO Q12HR for 14 Days, #28 TAB Prov: GISELLE HOOD DO 01/05/21 GISELLE HOOD DO January 05, 2021 10:52
[2021-01-05 11:14] LABS: BASO # 0.1 x10^3/uL (0.0-0.2); BASO % 1 % (0-3); EOS # 0.1 x10^3/uL (0.0-0.7); EOS % 1 % (0-3); HEMATOCRIT 45.7 % (39.0-53.0); LYMPH # 1.4 x10^3/uL (1.0-4.8); LYMPH % 16 % (24-48); MEAN CORPUSCULAR HEMOGLOBIN 33 pg (25-35); MEAN CORPUSCULAR HGB CONC 35 g/dL (31-37); MEAN CORPUSCULAR VOLUME 95 fL (79-100); MONO # 0.6 x10^3/uL (0.0-1.1); MONO % 7 % (0-9); NEUT # 6.2 x10^3/uL (1.8-7.7); NEUT % 74 % (31-73); PLATELET COUNT 289 x10^3/uL (140-400); RED BLOOD COUNT 4.84 x10^6/uL (4.30-5.70); RED CELL DISTRIBUTION WIDTH 12.4 % (11.5-14.5); WHITE BLOOD COUNT 8.3 x10^3/uL (4.0-11.0)
[2021-01-05 11:15] LABS: BILIRUBIN,URINE NEGATIVE (NEG); CLARITY,URINE CLEAR; COLOR,URINE YELLOW; NITRITE,URINE NEGATIVE (NEG); PROTEIN,URINE NEGATIVE (NEG-TRACE); UROBILINOGEN,URINE 0.2 mg/dL (0.2 mg/dL)
[2021-01-05 11:16] LABS: CALCIUM 9.8 mg/dL (8.5-10.1); CREATININE 0.9 mg/dL (0.7-1.3); GFR 102.8; POTASSIUM 3.9 mmol/L (3.5-5.1)
[2021-01-05 11:22] LABS: ALBUMIN 4.5 g/dL (3.4-5.0); ALBUMIN/GLOBULIN RATIO 1.1 (1.0-1.7); TOTAL BILIRUBIN 1.1 mg/dL (0.2-1.0); TOTAL PROTEIN 8.6 g/dL (6.4-8.2)
[2021-01-05 11:28] LABS: BACTERIA,URINE 0 /HPF (0-FEW); RBC,URINE 0 /HPF (0-2); WBC,URINE 0 /HPF (0-4)
[2021-01-05] MEDS: IOHEXOL 300 MG/ML 100ML VIAL. IV ONE (11:43)
[2021-01-05] MEDS ORDERED: CONTRAST GIVEN. MC PRN (11:45)
--- NOTE | 2021-01-05 11:56 | RAD ---
Study: CT abdomen/pelvis with intravenous contrast Indication: Lower abdominal pain. Bloody stools. Comparison: 03/22/2015 Technique: Helical CT imaging performed of the abdomen and pelvis after the intravenous administratio n of 75 cc Omnipaque 300 contrast. Sagittal and coronal reformats were obtained. One or more of the following individualized dose reduction techniques were utilized for this examinat ion: 1. Automated exposure control 2. Adjustment of the mA and/or kV according to patient size 3. Use of iterative reconstruction technique. Findings: Chest: Mild bibasilar volume loss. Liver: Hepatic steatosis. Gallbladder/Biliary Tree: No CT manifestations of acute cholecystitis. Nondilated biliary tree. Pancreas: Unremarkable. Spleen: Mildly enlarged at 14 cm transverse. Adrenal Glands: No adrenal gland mass. Kidneys/Ureters/Bladder: Small renal cystic foci on the right not fully characterized. Tiny focus of low attenuation at the lower pole of the left kidney. No nephrolithiasis or hydronephrosis. Within no rmal limits urinary bladder. Reproductive Organs: Enlarged prostate with median lobe hypertrophy. The prostate measures 5.5 cm tra nsverse. Colon: Active diverticulitis at the distal aspect of the descending segment with surrounding inflamma tion and trace free fluid. No evidence for an uncontained perforation. No abscess. Appendix: Normal. Small Bowel: Nonobstructed. Stomach: Unremarkable. Vasculature: Scattered calcific atherosclerosis. Nonaneurysmal aorta. Lymph Nodes: Within normal limits. Peritoneum and Body Wall: Trace free pelvic fluid. Inflammatory changes associated with diverticuliti s as described. No pneumoperitoneum. Small fat-containing umbilical hernia. Scattered metallic densit ies within the soft tissues around the right more so than left hips. Bones: Multifocal degenerative changes. No acute or aggressive osseous process. Miscellaneous: None. Impression: 1. Acute diverticulitis involving the distal aspect of the descending colon without an uncontained p erforation or abscess. Consider follow-up to confirm resolution and exclude an underlying mass. 2. Hepatic steatosis. Mild splenomegaly. 3. Additional chronic observations detailed in the body the report. Electronically signed by: NII ROJAS MD (01/05/2021 11:54 AM) [facility]
[2021-01-05 12:56] LABS: FECAL OB PT NEGATIVE (NEG)
[2021-01-05] MEDS ORDERED: AMOX1TAB61 PO (13:22)
[2021-01-05] MEDS ORDERED: ONDA4TAB12 PO (13:22)
[2021-01-05 13:35] VITALS: BP 140/74
== END 2021-01-05 13:49 | disposition home or self-care (01) ==
LOC: ER 10:03
DX: K57.92 Diverticulitis of intestine, part unspecified, without perforation or abscess without bleeding (principal); R74.8 Abnormal levels of other serum enzymes; R79.89 Other specified abnormal findings of blood chemistry; M54.5 Low back pain
CPT/HCPCS: 36415; 74177; 80053; 81001; 82274; 83690; 85025; 99285; Q9967